=== PATIENT | female | born 1955 | race Caucasian/White ===

== ENCOUNTER → 2017-05-26 16:42 | Outpatient (CLI) | payer BC ==
[2016-05-20 07:28] VITALS: BMI 37.2
[~2017-05-26 16:42] MED LIST: ANASTROZOLE1 MG PO; AVAPRO75 MG PO; PERCOCET 10/3251 TA1 PO; PLAVIX75 MG; PROTONIX40 MG PO; SYNTHROID75 MCG PO
== END | disposition home or self-care (01) ==
LOC: D.US 16:30
DX: M79.605 Pain in left leg (principal); R60.0 Localized edema

== ENCOUNTER → 2017-06-28 17:33 | Outpatient (CLI) | payer BC ==
[2016-05-20 07:28] VITALS: BMI 37.2
== END | disposition home or self-care (01) ==
LOC: D.MAMMO 09:00
DX: Z85.3 Personal history of malignant neoplasm of breast (principal); Z12.31 Encounter for screening mammogram for malignant neoplasm of breast

== ENCOUNTER → 2017-12-15 09:33 | Outpatient (CLI) | payer BC ==
[2016-05-20 07:28] VITALS: BMI 37.2
[~2017-12-15 09:33] MED LIST changes: +ACETAMINOPHEN500 M1 PO; +HYDROCODON-ACE1 EAC7 PO; +HYDROCODONE-APA1 TAB PO
== END | disposition home or self-care (01) ==
LOC: D.CT 09:33
DX: S82.111A Displaced fracture of right tibial spine, initial encounter for closed fracture (principal); X58.XXXA Exposure to other specified factors, initial encounter; Y93.89 Activity, other specified; Y92.89 Other specified places as the place of occurrence of the external cause

== ENCOUNTER → 2017-12-16 12:43 | Outpatient (CLI) | payer BC ==
[2016-05-20 07:28] VITALS: BMI 37.2
== END | disposition home or self-care (01) ==
LOC: D.CT 12:43
DX: M25.512 Pain in left shoulder (principal); S42.92XA Fracture of left shoulder girdle, part unspecified, initial encounter for closed fracture; X58.XXXA Exposure to other specified factors, initial encounter; Y93.89 Activity, other specified; Y92.89 Other specified places as the place of occurrence of the external cause

== ENCOUNTER 2017-12-20 10:35 | Day surgery (SDC) | payer BC ==
[2017-12-17 12:35] LABS: CALC OSMOLALITY 280 mosm/kg (275-300); CALCIUM 9.1 mg/dL (8.5-10.1); CARBON DIOXIDE 25.3 mmol/L (21.0-32.0); CHLORIDE - SERUM 104 mmol/L (98-107); CREATININE - SERUM 0.8 mg/dL (0.6-1.3); GLUCOSE 96 mg/dL (74-106); POTASSIUM - SERUM 4.3 mmol/L (3.5-5.1); SODIUM 140 mmol/L (136-145); UREA NITROGEN 18 mg/dL (7-18); eGFR NON AFRICAN AMERICAN 77 mL/min (90-120)
[2017-12-17 12:47] LABS: HEMATOCRIT 36.2 % (36.0-48.0); HEMOGLOBIN 11.9 g/dL (12-16); MCH 31.4 pg (26.0-34.0); MCHC 32.9 g/dL (31.0-37.0); MCV 95.5 fL (80.0-100.0); MEAN PLATELET VOLUME 9.9 fL (7.4-10.4); RBC 3.79 10x6/uL (4.00-5.40); RDW 13.5 % (11.5-14.5); WBC 6.7 10x3/uL (4.8-10.8)
[2017-12-17 12:51] LABS: APPEARANCE HAZY (CLEAR); BILIRUBIN NEGATIVE (NEGATIVE); COLOR YELLOW (YELLOW); GLUCOSE NEGATIVE (NEGATIVE); KETONE NEGATIVE (NEGATIVE); NITRITE NEGATIVE (NEGATIVE); PROTEIN NEGATIVE (NEGATIVE); SPECIFIC GRAVITY 1.015 (1.005-1.020); UROBILINOGEN NORMAL (NORMAL)
[2017-12-17 12:52] LABS: BACTERIA FEW /hpf (NONE SEEN); EPITHELIAL CELLS 0-5 /hpf (0-5); MUCUS >1+ /lpf (NONE SEEN); RED CELLS - URINE RARE /hpf (0-5)
[~2017-12-20] VITALS: Ht 167.6 cm; Wt 106.8 kg
--- NOTE | ~2017-12-20 | OP ---
PATIENT NAME: LAY CAMERON MEDICAL RECORD: [id number] :57 [facility] AD[facility]ION DATE: SURGEON: GENOVEVA LEPE MD DATE OF OPERATION: 12/20/2017 PREOPERATIVE DIAGNOSIS: Medial tibial compression fracture -- tibial plateau fracture. POSTOPERATIVE DIAGNOSIS: Medial tibial compression fracture -- tibial plateau fracture. PROCEDURE: Open reduction internal fixation of her right medial tibial plateau. SURGEON: Genoveva Lepe MD ANESTHESIA: General. INTRAOPERATIVE COMPLICATIONS: None. SUMMARY OF PATHOLOGIC FINDINGS: As predicted on the scans, the patient had about a 3 mm depression in the central aspect of her tibial plateau. This required up tamping and backfill, which was all under fluoroscopic control. It was slightly over reduced for settling. IMPLANTS USED: AxSOS 3 system from [employer] proximal medial tibial plate with a combination of both locking and compression screw. OPERATIVE SUMMARY IN DETAIL: After obtaining the appropriate orthopedic surgery consent as well as anesthetic consultation, evaluation and clearance, the patient was brought to the operating room and placed on the operating table in supine position. After general laryngeal mask administered, tourniquet was placed on the proximal aspect of the right lower extremity. Right lower extremity was then prepped and draped in routine sterile fashion. The leg was elevated and exsanguinated, tourniquet inflated to 350 mmHg. Routine hockey stick style incision was made over the medial aspect of the leg, taken directly down to periosteum. Care was taken to develop the wound edge off the periosteum. Fracture was noted and a very small cortical perforation was created with a hand osteotome and then a bone tamp was used gently under fluoroscopy on AP and lateral planes to reapproximate the tibial plateau compression, in fact to make it just a slight bit higher. This was then backfilled with HydroSet from Juli[employer]. Once the HydroSet was allowed to harden, the [employer] AxSOS 3 tibial plateau plate was affixed in a combination of both compression and locking screws. Final radiographs were taken and submitted to radiology for final review. The wound was copiously irrigated and closed with #1 Vicryl followed by 2-0 Vicryl and skin kerry. Sterile dressings were applied. Tourniquet was deflated. The patient was awakened, taken to recovery room in stable condition. All final needle and sponge counts were correct. TRANSINT:[id number] Voice Confirmation ID: [id number] DOCUMENT ID: [id number] OPERATIVE REPORT [id number] LAY CAMERON MD, GENOVEVA MERLOS at 1341 CC: [id number] DICTATION DATE: 01/03/182245 HEEL FORMER: 01/04/18 0931 [facility] 12/20/17 [place] [id number]
[~2017-12-20 10:35] MED LIST changes: -HYDROCODONE-APA1 TAB PO
[2017-12-20 11:14] VITALS: Ht 167.6 cm; Wt 106.8 kg
[2017-12-20] MEDS ORDERED: HYDROCODONE-APA1 TAB PO (16:29)
== END 2017-12-20 19:10 | disposition home or self-care (01) ==
LOC: D.OPS 10:35 → D.PAN 12:30 → D.OPS 19:10
PROVIDERS: Anesthesiology
DX: S82.102A Unspecified fracture of upper end of left tibia, initial encounter for closed fracture (principal); M25.512 Pain in left shoulder; E03.9 Hypothyroidism, unspecified; K21.9 Gastro-esophageal reflux disease without esophagitis; Z01.812 Encounter for preprocedural laboratory examination

== ENCOUNTER → 2018-05-25 10:10 | Outpatient (CLI) | payer BC ==
[2017-12-20 11:14] VITALS: BMI 38.0
[~2018-05-25 10:10] MED LIST changes: +HYDROCODONE-APA1 TAB PO
[2018-05-25 11:52] LABS: ALBUMIN 3.6 g/dL (3.4-5.0); ANION GAP 11.5 mmol/L (8-16); BILIRUBIN - TOTAL 1.38 mg/dL (0.2-1.3); CARBON DIOXIDE 27.8 mmol/L (21.0-32.0); CREATININE - SERUM 0.9 mg/dL (0.6-1.3); POTASSIUM - SERUM 4.3 mmol/L (3.5-5.1); PROTEIN - SERUM 7.2 g/dL (6.4-8.2)
== END | disposition home or self-care (01) ==
LOC: D.LABREF 10:10
PROVIDERS: Family Medicine
DX: Z13.220 Encounter for screening for lipoid disorders (principal)

== ENCOUNTER → 2018-06-27 06:47 | Outpatient (CLI) | payer BC ==
[2017-12-20 11:14] VITALS: BMI 38.0
== END | disposition home or self-care (01) ==
LOC: D.MRI 06:47
DX: M54.5 Low back pain (principal)

== ENCOUNTER → 2018-06-28 16:22 | Outpatient (CLI) | payer BC ==
[2017-12-20 11:14] VITALS: BMI 38.0
== END | disposition home or self-care (01) ==
LOC: D.MAMMO 08:15
DX: Z12.31 Encounter for screening mammogram for malignant neoplasm of breast (principal)

== ENCOUNTER → 2019-01-20 13:13 | Outpatient (CLI) | payer BC ==
[2017-12-20 11:14] VITALS: BMI 38.0
== END | disposition home or self-care (01) ==
LOC: D.US 13:13
PROVIDERS: ATTEND Family Medicine
DX: N63.22 Unspecified lump in the left breast, upper inner quadrant (principal)

== ENCOUNTER 2019-07-04 08:00 | Outpatient (CLI) | payer BC ==
[2017-12-20 11:14] VITALS: BMI 38.0
== END 2019-07-04 23:59 | disposition home or self-care (01) ==
LOC: D.MAMMO 08:00
PROVIDERS: ATTEND Family Medicine
DX: Z85.3 Personal history of malignant neoplasm of breast (principal)

== ENCOUNTER 2019-08-11 13:13 | Inpatient (IN) | payer BC ==
[2019-08-11] VITALS (8 sets, daily range): BP systolic 123–155; BP diastolic 67–95; BMI 37.2
[~2019-08-11] VITALS: Ht 167.6 cm; Wt 114.2 kg
[2019-08-11 14:04] LABS: CALC OSMOLALITY 289 mosm/kg (275-300); CHLORIDE - SERUM 106 mmol/L (98-107); CREATININE - SERUM 1.2 mg/dL (0.6-1.3); GLUCOSE 168 mg/dL (74-106); POTASSIUM - SERUM 3.4 mmol/L (3.5-5.1); SODIUM 143 mmol/L (136-145); UREA NITROGEN 14 mg/dL (7-18); eGFR NON AFRICAN AMERICAN 48 mL/min (90-120)
[2019-08-11 14:14] LABS: ALBUMIN 3.9 g/dL (3.4-5.0); ALKALINE PHOSPHATASE 142 U/L (46-116); ALT (SGPT) 133 U/L (10-68); BILIRUBIN - TOTAL 3.17 mg/dL (0.2-1.3)
[2019-08-11 14:15] LABS: TROPONIN-I < 0.017 ng/mL (0.000-0.060)
[2019-08-11 14:37] LABS: WBC 20.6 10x3/uL (4.8-10.8)
[2019-08-11 14:38] LABS: HEMATOCRIT 41.6 % (36.0-48.0); HEMOGLOBIN 13.6 g/dL (12-16); MCH 30.6 pg (26.0-34.0); MCHC 32.7 g/dL (31.0-37.0); MCV 93.5 fL (80.0-100.0); MEAN PLATELET VOLUME 10.2 fL (7.4-10.4); PLATELET COUNT 244 10x3/uL (130-400); RBC 4.45 10x6/uL (4.00-5.40); RDW 13.3 % (11.5-14.5)
[2019-08-11 14:58] LABS: LIPASE 35219 U/L (73-393)
[2019-08-11 14:59] LABS: AMYLASE - SERUM 2456 U/L (25-115)
--- NOTE | 2019-08-11 15:00 | NUR ---
CRITICAL LABAMYLASE 3216RECEIVED FROM WAGONER; HERNESTO DARBY NOTIFIED.
[2019-08-11 15:21] LABS: APPEARANCE CLEAR (CLEAR); BILIRUBIN NEGATIVE (NEGATIVE); COLOR YELLOW (YELLOW); GLUCOSE NEGATIVE (NEGATIVE); KETONE NEGATIVE (NEGATIVE); NITRITE NEGATIVE (NEGATIVE); PROTEIN TRACE mg/dL (NEGATIVE); UROBILINOGEN NORMAL (NORMAL); WHITE CELLS - URINE 0-5 /hpf (NEGATIVE)
[2019-08-11 15:22] LABS: BACTERIA MANY /hpf (NEGATIVE); EPITHELIAL CELLS OCC /hpf (0-5); RED CELLS - URINE 0-5 /hpf (0-5)
[2019-08-11 15:30] LABS: LYMPHOCYTES 9 % (15-50); NEUTROPHILS 91 % (40-80); PLATELET ESTIMATE NORMAL
--- NOTE | 2019-08-11 16:00 | NUR ---
PATIENT SLIGHTLY DROWSEY; REPORTS PAIN IMPROVED TO 6 OR 7/10; FAMILY AT BEDSIDE; UPDATED ON PLAN OF CARE AND DELAYS IN CARE; WILL CONTINUE TO MONITOR.
--- NOTE | 2019-08-11 19:03 | NUR ---
PT REPORT RECEIVED FROM TRIXIE, USING [employer] PlatformUICATION. PT ABX AND FLUIDS RUNNING AT TIME OF REPORT. O2 GIVEN TO PT FOR LOW O2 SAT. EDP NOTIFIED OF PT CONDITION
--- NOTE | 2019-08-11 20:15 | NUR ---
RECEIVED PT TO ROOM 2312 VIA STRETCHER ACCOMPANIED BY ER STAFF. PT ABLE TO MOVE SELF OVER TO ICU BED, MONITORS ESTABLISHED WITH ALARMS ON, PT DENIES PAIN OR ANY NEEDS AT THIS TIME, ANUSHKA TYLER APN ON UNIT.
[2019-08-11] MEDS ORDERED: NEURONTIN 300300 MG PO (20:36)
[2019-08-11] MEDS ORDERED: ZANAFLEX4 MG PO (20:37)
[2019-08-11] MEDS ORDERED: LISINOPRIL10 MG PO (20:38)
[2019-08-11] MEDS ORDERED: LIPITOR20 MG PO (20:41)
--- NOTE | 2019-08-11 21:20 | NUR ---
PT FAMILY IN FOR VISITATION, ICU PHONE NUMBERS AND HOURS OF VISITATION PROVIDED, ALL QUESTIONS ANSWERED, ICE WATER PROVIDED PER REQUEST.
--- NOTE | 2019-08-11 23:47 | NUR ---
PT C/O NAUSEA, VOMITED 100CC OF YELLOW LIQUID, PRN ZOFRAN 4MG ADMINISTERED VIA SIVP PER MD ORDER.
[2019-08-12] VITALS (24 sets, daily range): BP systolic 107–147; BP diastolic 63–93; Ht 167.6 cm; Wt 114.2 kg
--- NOTE | 2019-08-12 00:35 | NUR ---
PT RESTING IN BED WITH EYES CLOSED, VSS, CONT POC.
--- NOTE | 2019-08-12 01:30 | NUR ---
ASSISTED PT TO BSC, ABLE TO PROVIDE OWN PERICARE, BACK TO BED WITHOUT DIFFICULTY, CALL LIGHT IN REACH.
[2019-08-12 04:04] LABS: BASOPHILS 0.1 % (0-2); EOSINOPHILS 0 % (0-7); HEMATOCRIT 41.4 % (36.0-48.0); HEMOGLOBIN 13.6 g/dL (12-16); IMMATURE GRANULOCYTES 0.3 % (0-5); LYMPHOCYTES 4.4 % (15-50); MCH 31.1 pg (26.0-34.0); MCHC 32.9 g/dL (31.0-37.0); MCV 94.7 fL (80.0-100.0); MEAN PLATELET VOLUME 9.7 fL (7.4-10.4); MONOCYTES 3.9 % (2-11); NEUTROPHILS 91.3 % (40-80); RBC 4.37 10x6/uL (4.00-5.40); RDW 13.5 % (11.5-14.5); WBC 16.1 10x3/uL (4.8-10.8)
[2019-08-12 04:08] LABS: APTT 24.7 SECONDS (22.8-39.4); INR 1.28 (0.85-1.17); PROTIME 15.4 SECONDS (11.6-15.0)
[2019-08-12 04:14] LABS: PLATELET COUNT 170 10x3/uL (130-400)
[2019-08-12 04:25] LABS: ALBUMIN 3.3 g/dL (3.4-5.0); BILIRUBIN - TOTAL 2.6 mg/dL (0.2-1.3); CALCIUM 8.9 mg/dL (8.5-10.1); CARBON DIOXIDE 27.8 mmol/L (21.0-32.0); CHOL - HDL RATIO 2.3 ratio (2.3-4.1); CREATININE - SERUM 1.3 mg/dL (0.6-1.3); LDL-HDL RATIO 1.2 ratio (1.5-3.5); MAGNESIUM - SERUM 1.9 mg/dL (1.8-2.4); PHOSPHOROUS 3.7 mg/dL (2.5-4.9); PROTEIN - SERUM 7.1 g/dL (6.4-8.2); THYROID STIMULATING HORMONE 0.45 uIU/mL (0.36-3.74)
[2019-08-12 04:33] LABS: ANION GAP 11.9 mmol/L (8-16); POTASSIUM - SERUM 4.7 mmol/L (3.5-5.1)
--- NOTE | 2019-08-12 08:30 | NUR ---
UP IN BED VISITIN WITH VISITOR AT THIS TIME. VSS. NO ACUTE DISTRESS NOTED. PT STATES PAIN IS MUCH BETTER THAN IS WAS LAST SHIFT. WILL CONTINUE PLAN OF CARE.
--- NOTE | 2019-08-12 10:10 | NUR ---
NOTED ORDER FOR SPUTUM SPECIMEN COLLECTION. PT STATES SHE IS NOT CURRETNTLY HAVING PRODUCTIVE SPUTUM. SPECIMEN CUP LEFT AT BEDSIDE FOR COLLECTION IF SHE DOES HAVE PRODUCTIVE SPUTUM. VSS. NO ACUTE DISTRESS NOTED. WILL CONTINUE PLAN OF CARE.
--- NOTE | 2019-08-12 10:50 | NUR ---
DR MARTIN AND DR LEI IN ROOM SPEAKING WITH PT AND PTS DAUGHTER. UPDATES PROVIDED. ALL QUESTIOSN AND CONCERNS ADRESSED.
--- NOTE | 2019-08-12 11:00 | NUR ---
DR MCKEON CONSULTED, NEHAL DR MCKEON'S DOCTORATE OF CHIROPRACTIC ASSEMBLER CONVERTIBLE TOP, NOTIFIED OF THIS CONSULT.
--- NOTE | 2019-08-12 11:53 | NUR ---
LEFT WITH MRI AT THIS TIME VIA WHEELCHAIR ACCOMPANIED BY HOSPITAL STAFF AND NURSE. NO ACUTE DISTRESS NOTED. VSS. WILL CONTINUE PLAN OF CARE.
--- NOTE | 2019-08-12 12:40 | NUR ---
RETURNED FROM MRI AT THIS TIME. FAMILY IN ROOM. VSS. WILL CONTINUE PLAN OF CARE.
--- NOTE | 2019-08-12 13:32 | NUR ---
IV TO LT AC SITE BEGINNING TO LEAK AROUND INSERTION SITE. ATTMPT X 2 PERFORMED BY THIS NURSE TO LT AND FOREARM WITH NO SUCCESS. WILL HAVE SECOND NURSE ATTEMPT IV RECITATION. VSS. WILL CONTINUE PLAN OF CARE.
--- NOTE | 2019-08-12 14:15 | NUR ---
IV RECITED TO RT AC 20G, FLUSHES WELL. OLD LEAKING IV DC TO LT AC, CATHETER TIP INTACT. NO ACUTE DISTRESS NOTED. VSS. WILL CONTINUE PLAN OF CARE.
--- NOTE | 2019-08-12 15:10 | NUR ---
PER DR LEI START LOVENOX 40 SUBQ DAILY.
--- NOTE | 2019-08-12 17:16 | NUR ---
UP IN BED VISITING WITH FAMILY AT THIS TIME. NO ACUTE DISTRESS NOTED. VSS. WILL CONTINUE PLAN OF CARE.
--- NOTE | 2019-08-12 18:17 | NUR ---
CHG BATH PROVIDED AT THIS TIME. TOTAL LINEN CHANGE PROVIDED. VSS. NO ACUTE DISTRESS NOTED. WILL CONTINUE PLAN OF CARE.
--- NOTE | 2019-08-12 19:30 | NUR ---
RESUMED CARE OF PT, ASSESSMENT PER FLOWSHEET. HR SR ON CM, PPP, ABD MILDLY TENDER TO PALP IN EPIGASTRIC REGION, DENIES ANY NEEDS AT THIS TIME. BED LOW, CALL LIGHT IN REACH.
--- NOTE | 2019-08-12 21:20 | NUR ---
PT FAMILY IN FOR VISITATION, ALL DENY ANY NEEDS AT THIS TIME, VSS.
--- NOTE | 2019-08-12 23:30 | NUR ---
REASSESSMENT PER FLOWSHEET, NO ACUTE CHANGES NOTED AT THIS TIME. PT DENIES PAIN OR ANY NEEDS, CONT POC.
[2019-08-13] VITALS (14 sets, daily range): BP systolic 110–137; BP diastolic 70–90
--- NOTE | 2019-08-13 01:49 | NUR ---
PT RESTING IN BED WITH EYES CLOSED, VSS, CONT TO MONITOR.
[2019-08-13 03:41] LABS: BASOPHILS 0.1 % (0-2); EOSINOPHILS 0 % (0-7); HEMATOCRIT 38.8 % (36.0-48.0); HEMOGLOBIN 12.6 g/dL (12-16); IMMATURE GRANULOCYTES 0.4 % (0-5); LYMPHOCYTES 5.3 % (15-50); MCHC 32.5 g/dL (31.0-37.0); MCV 95.6 fL (80.0-100.0); MEAN PLATELET VOLUME 9.8 fL (7.4-10.4); MONOCYTES 4.4 % (2-11); NEUTROPHILS 89.8 % (40-80); PLATELET COUNT 146 10x3/uL (130-400); RBC 4.06 10x6/uL (4.00-5.40); RDW 13.8 % (11.5-14.5); WBC 19.9 10x3/uL (4.8-10.8)
[2019-08-13 04:14] LABS: ANION GAP 10.6 mmol/L (8-16); CALCIUM 8.7 mg/dL (8.5-10.1); CARBON DIOXIDE 26.4 mmol/L (21.0-32.0); MAGNESIUM - SERUM 1.9 mg/dL (1.8-2.4); PHOSPHOROUS 2.9 mg/dL (2.5-4.9); VANCOMYCIN - TROUGH 10.6 ug/mL (10.0-20.0)
--- NOTE | 2019-08-13 05:50 | NUR ---
AM LABS REVIEWED, NOTHING TO TREAT PER ELECTROLYTE PROTOCOL, NO VISITORS PRESENT AT THIS TIME, PT RESTING WITH EYES CLOSED, VSS.
--- NOTE | 2019-08-13 07:22 | NUR ---
ASSITED TO CHAIR AT THIS TIME FROM BED VIA STAND BY ASSIST. VSS. CONTINENT VOID NOTED TO BEDSIDE TOILET. NO ACUTE DISTRESS NOTED. WILL CONTINUE PLAN OF CARE.
[2019-08-13 08:54] LABS: BILIRUBIN - DIRECT 0.33 mg/dL (0.00-0.30); BILIRUBIN - INDIRECT 2.73 mg/dL (0.00-1.00); BILIRUBIN - TOTAL 3.06 mg/dL (0.2-1.3)
--- NOTE | 2019-08-13 09:21 | NUR ---
ASSISTED BACK TO BED AT THIS TIME. CONTINENT VOID NOTED. VSS. WILL CONTINUE PLAN OF CARE.
--- NOTE | 2019-08-13 11:11 | MORECARE ---
CASE MANAGEMENT DISCHARGE SUMMARY PATIENT: LAY CAMERON MOLLY UNIT: [id number] ADM DATE: 08/11/19 AGE: 64 : 57 SEX: F ROOM/BED: D.2312 AUTHOR: JAMIE LUGO PHYSICIAN: REFERRING PHYSICIAN: CHRISTINA LEI MD DATE OF SERVICE: 08/13/19 Discharge Plan Patient Name: LAY CAMERON Facility: [facility]:[place] : 1955 Planned Disposition: Home Anticipated Discharge Date: Discharge Date: Expected LOS: Initial Reviewer: [email or web address] Initial Review Date: 08/13/2019 Generated: 08/13/19 12:11 pm Comments DCP- Discharge Planning Updated by [email or web address]: Teetee Ceballos on 08/13/19 10:[address] Patient Name: LAY CAMERON Admission Status: ER Accout number: [id number] Admission Date: 08-11-2019 : 1955 Admission Diagnosis: Attending: CHRISTINA LEI Current LOS: 2 Anticipated DC Date: Planned Disposition: Home Primary Insurance: [employer] [place] [employer] [facility] Discharge Planning Comments: CM met with patient at bedside after explaining CM role and obtaining verbal consent. CM discussed availability / needs of home health, REHAB and medical equipment. PATIENT DENIES ANY DISCHARGE NEEDS AT THIS TIME. PLANS TO DISCHARGE TO HOME WITH HER . CM WILL FOLLOW. Systems Security Consultant: Teetee Ceballos DCPIA - Discharge Planning Initial Assessment Updated by [id number]: Teetee Ceballos on 08/13/19 11:07 am * Is the patient Alert and Oriented? Yes * PCP LEI * Pharmacy [facility] * Preadmission Environment Home with Family * ADLs Independent * Equipment None * List name and contact numbers for known caregivers / representatives who currently or will assist patient after discharge: CHERIE, SPOUSE, * Community resources currently utilized None * Additional services required to return to the preadmission environment? No * Can the patient safely return to the preadmission environment? Yes * Has this patient been hospitalized within the prior 30 days at any hospital? No Patient Name: LAY CAMERON Page [phone] at 1111 All edits/amendments must be made on the electronic document DICTATION DATE: 08/13/19 1111 RADIO PROGRAM DIRECTOR: RAMIREZ 08/13/19 1111 RPT#: [id number] [place] DATE: STATUS: ADM IN [facility] [address] [place] [address] END OF REPORT
--- NOTE | 2019-08-13 11:20 | NUR ---
UP IN BED AWAKE AT THIS TIME. NO ACUTE DISTRESS NOTED. VSS. CALL LIGHT IN REACH. WILL CONTINUE PLAN OF CARE.
--- NOTE | 2019-08-13 12:26 | NUR ---
NOTED SHORTNESS OF BREATH, RESPIRATIONS UP TO 30S, AND FACIAL FLUSHING. DR TUCKER NOTIFIED. ORDERS RECIEVED.
--- NOTE | 2019-08-13 13:55 | NUR ---
RECIEVED ORDER TO TRANSFER PT PER DR MARTIN AND DR TUCKER.
--- NOTE | 2019-08-13 14:51 | NUR ---
DDIMER GREATER THAN 20, DR NAIDA LAWRENCE.
--- NOTE | 2019-08-13 15:33 | NUR ---
PER DR TUCKER, OBTAIN CTA CHEST FOR ELEVATED DDIMER AND THEN TRANSFER TO FLOOR. PT LEFT FOR CT AT THIS TIME AND THEN WILL BE TRANSFERRED TO 2231. FAMILY NOTIFIED. VSS. NO FURTHER ACTIONS.
--- NOTE | 2019-08-13 16:16 | NUR ---
PT RECEIVED TO ROOM ALERT AND ORIENTED AND UP ADLIB TO BATHROOM WITH SBA. LUNGS CTA WITH NO PRODUCTIVE COUGH.NO PERIPHERAL EDEMA NOTED.O2 2L N/C WITH SOB WITH MINIMAL EXERTION. ENCOURAGED TO USE CALL LIGHT FOR ASSSIT. IV TO LEFT F/A WITH IVF INFUSING AT PRESCRIBED RATE
[2019-08-14] VITALS (16 sets, daily range): BP systolic 119–163; BP diastolic 64–94
[2019-08-14 06:38] LABS: BASOPHILS 0.1 % (0-2); EOSINOPHILS 0.1 % (0-7); HEMATOCRIT 34.9 % (36.0-48.0); HEMOGLOBIN 11.3 g/dL (12-16); IMMATURE GRANULOCYTES 0.3 % (0-5); LYMPHOCYTES 5.7 % (15-50); MCH 30.5 pg (26.0-34.0); MCHC 32.4 g/dL (31.0-37.0); MCV 94.1 fL (80.0-100.0); MEAN PLATELET VOLUME 10.6 fL (7.4-10.4); MONOCYTES 5.2 % (2-11); NEUTROPHILS 88.6 % (40-80); PLATELET COUNT 160 10x3/uL (130-400); RBC 3.71 10x6/uL (4.00-5.40); RDW 13.6 % (11.5-14.5); WBC 16.3 10x3/uL (4.8-10.8)
[2019-08-14 07:10] LABS: ALBUMIN 2.6 g/dL (3.4-5.0); ALKALINE PHOSPHATASE 76 U/L (46-116); ALT (SGPT) 234 U/L (10-68); BILIRUBIN - TOTAL 2.73 mg/dL (0.2-1.3); CALC OSMOLALITY 274 mosm/kg (275-300); CALCIUM 8.9 mg/dL (8.5-10.1); CARBON DIOXIDE 24.7 mmol/L (21.0-32.0); CHLORIDE - SERUM 106 mmol/L (98-107); GLUCOSE 86 mg/dL (74-106); MAGNESIUM - SERUM 2.1 mg/dL (1.8-2.4); POTASSIUM - SERUM 3.7 mmol/L (3.5-5.1); PROTEIN - SERUM 6.4 g/dL (6.4-8.2); SODIUM 138 mmol/L (136-145); UREA NITROGEN 13 mg/dL (7-18); eGFR NON AFRICAN AMERICAN 90 mL/min (90-120)
[2019-08-14 07:14] LABS: CREATININE - SERUM 0.7 mg/dL (0.6-1.3); PHOSPHOROUS 1.6 mg/dL (2.5-4.9)
--- NOTE | 2019-08-14 07:44 | NUR ---
AWAKE AND ALERT. ORIENTED X3. NO C/O AT THIS TIME. LUNGS ARE DIMINISHED WITH FAINT CRACKLES NOTED. SKIN IS INTACT WITHOUT REDNESS. IV TO LEFT FOREARM IS PATENT WTIHOUT REDNESS AT INSERTION SITE. DENIES NEEDS. NPO AT THIS TIME.
--- NOTE | 2019-08-14 12:03 | NUR ---
1203-CARE TRANSFERRED TO YAMILKA JAQUEZ RN
--- NOTE | 2019-08-14 12:08 | NUR ---
CARE ASSUMED FROM ANGEL BELTRÁN RN
--- NOTE | 2019-08-14 12:39 | NUR ---
RETURNED FROM SURGERY. A/O X3, FERNANDO TO RIGHT LOWER ABDOMEN INTACT WITH BLOODY DRAINAGE. IN ROOM.
--- NOTE | 2019-08-14 15:00 | NUR ---
RESTING QUIETLY IN BED. FAMILY AT BEDSIDE.
--- NOTE | 2019-08-14 18:00 | NUR ---
AMBULATED IN ROOM WITH NURSING. VOIDED 250 CC CLEAR YELLOW URINE. DENIES NEEDS. NO CHANGES NOTED.
[2019-08-15 01:39] VITALS: BP 120/61
[2019-08-15 04:44] LABS: BASOPHILS 0.1 % (0-2); EOSINOPHILS 0.4 % (0-7); HEMATOCRIT 32.9 % (36.0-48.0); HEMOGLOBIN 10.9 g/dL (12-16); IMMATURE GRANULOCYTES 0.6 % (0-5); LYMPHOCYTES 6.6 % (15-50); MCH 30.5 pg (26.0-34.0); MCHC 33.1 g/dL (31.0-37.0); MCV 92.2 fL (80.0-100.0); MEAN PLATELET VOLUME 9.4 fL (7.4-10.4); NEUTROPHILS 85.3 % (40-80); PLATELET COUNT 150 10x3/uL (130-400); RBC 3.57 10x6/uL (4.00-5.40); RDW 13.4 % (11.5-14.5)
[2019-08-15 04:49] VITALS: BP 122/66
[2019-08-15 04:56] LABS: APTT 24.3 SECONDS (22.8-39.4); INR 1.32 (0.85-1.17); PROTIME 15.8 SECONDS (11.6-15.0)
[2019-08-15 05:11] LABS: ALBUMIN 2.2 g/dL (3.4-5.0); ALKALINE PHOSPHATASE 65 U/L (46-116); ALT (SGPT) 206 U/L (10-68); BILIRUBIN - TOTAL 1.95 mg/dL (0.2-1.3); CALC OSMOLALITY 275 mosm/kg (275-300); CALCIUM 8.6 mg/dL (8.5-10.1); CARBON DIOXIDE 25.4 mmol/L (21.0-32.0); CHLORIDE - SERUM 106 mmol/L (98-107); CREATININE - SERUM 0.7 mg/dL (0.6-1.3); GLUCOSE 93 mg/dL (74-106); PHOSPHOROUS 1.6 mg/dL (2.5-4.9); POTASSIUM - SERUM 3.5 mmol/L (3.5-5.1); PROTEIN - SERUM 5.7 g/dL (6.4-8.2); SODIUM 138 mmol/L (136-145); UREA NITROGEN 13 mg/dL (7-18); VANCOMYCIN - TROUGH 11.9 ug/mL (10.0-20.0); eGFR NON AFRICAN AMERICAN 90 mL/min (90-120)
--- NOTE | 2019-08-15 07:52 | NUR ---
AWAKE AND ALERT. ORIENTED X3. NO C/O THIS AM. LUNGS ARE CLEAR BILATERALLY, NO COUGH NOTED. SKIN IS INTACT WITHOUT REDNESS EXCEPT 4 SMALL INSERTION SITES TO ABDOMEN WHICH ARE CLEAN AND DRY. IV TO LEFT HAND IS PATENT WITHOUT REDNESS AT INSERTION SITE. DENIES NEEDS. SCD'S IN PLACE.
[2019-08-15 08:53] VITALS: BP 124/57
--- NOTE | 2019-08-15 09:01 | NUR ---
OFF UNIT VIA BED FOR PROCEDURE.
--- NOTE | 2019-08-15 10:00 | NUR ---
RETURNED FROM PROCEDURE. A/O X3. DENIES NEEDS. VSS. AT BEDSIDE.
[2019-08-15 10:10] LABS: CEA 1.7 ng/mL (0.0-4.7)
[2019-08-15 11:30] VITALS: BP 129/67
[2019-08-15] MEDS ORDERED: HYDROCODON-ACE1 EAC7 PO (13:10)
[2019-08-15] MEDS ORDERED: LEVOFLOXACIN500 MG PO (13:11)
--- NOTE | 2019-08-15 14:58 | NUR ---
NUTRITION F/U CHART REVIEWED, PT VISIT. PT REPORTS TOLERATING FULL LIQUID DIET. NO COMPLAINTS. WILL CONTINUE TO MONITOR DIET ADVANCEMENT, PO INTAKE. RD FOLLOWING
--- NOTE | 2019-08-15 16:16 | NUR ---
FERNANDO D/C WITHOUT DIFFICULTY. TOLERATED WITHOUT C/O PAIN OR DISCOMFORT.
[2019-08-15 17:30] VITALS: BP 126/60
--- NOTE | 2019-08-15 18:35 | NUR ---
NOT EATING SUPPER. CHANGED OUT ICE CREAM AND JELLO TO HER TASTE. DENIES NEEDS. NO CHANGES NOTED. OLD FERNANDO SITE IS NO LONGER LEAKING.
--- NOTE | 2019-08-15 19:20 | NUR ---
PT SITTING UP IN BED WITHOUT DISTRESS, AOX4. DENIES PAIN. BOWEL SOUNDS ACTIVE X4. STATES SHE HAS HAD AN OCCASIONAL COUGH, COUGHING UP CLEAR TO YELLOW SPUTUM. REMINDED OF PRN COUGH MED, VERBALIZED UNDERSTANDING. DRESSINGS TO ABD CDI. EATING ORANGE SHERBERT. DENIES NEEDS. CL IN REACH, WILL CTM
[2019-08-15 20:14] VITALS: BP 126/62
--- NOTE | 2019-08-15 21:00 | NUR ---
GAVE MOM ORDERED, PT DENIES NEEDS. STATES SHE IS PASSING GAS AND HAD HER FIRST SMALL BM SINCE WEDNESDAY ONE HOUR AGO. STATES IT WAS LOOSE. CL IN REACH, WILL CTM
[2019-08-16 01:02] VITALS: BP 124/98
--- NOTE | 2019-08-16 03:56 | NUR ---
PT WOKE UP COUGHING, REQUESTED AND GIVEN COUGH MED. PROVIDED ICE WATER. DENIES OTHER NEEDS. FAMILY AT BEDSIDE. WILL CTM
[2019-08-16 07:11] LABS: BASOPHILS 0.2 % (0-2); EOSINOPHILS 1.2 % (0-7); HEMATOCRIT 35.1 % (36.0-48.0); HEMOGLOBIN 11.3 g/dL (12-16); IMMATURE GRANULOCYTES 1.1 % (0-5); MCH 30.4 pg (26.0-34.0); MCHC 32.2 g/dL (31.0-37.0); MEAN PLATELET VOLUME 10.3 fL (7.4-10.4); MONOCYTES 7.6 % (2-11); NEUTROPHILS 81.9 % (40-80); RBC 3.72 10x6/uL (4.00-5.40); RDW 13.4 % (11.5-14.5); WBC 12.6 10x3/uL (4.8-10.8)
[2019-08-16 07:12] LABS: MCV 94.4 fL (80.0-100.0); PLATELET COUNT 87 10x3/uL (130-400)
[2019-08-16 07:21] LABS: ALBUMIN 2.3 g/dL (3.4-5.0); ALKALINE PHOSPHATASE 77 U/L (46-116); BILIRUBIN - TOTAL 1.55 mg/dL (0.2-1.3); CALC OSMOLALITY 271 mosm/kg (275-300); CALCIUM 8.2 mg/dL (8.5-10.1); CARBON DIOXIDE 25.2 mmol/L (21.0-32.0); CHLORIDE - SERUM 104 mmol/L (98-107); CREATININE - SERUM 0.6 mg/dL (0.6-1.3); GLUCOSE 88 mg/dL (74-106); MAGNESIUM - SERUM 2.1 mg/dL (1.8-2.4); PHOSPHOROUS 1.7 mg/dL (2.5-4.9); POTASSIUM - SERUM 3.3 mmol/L (3.5-5.1); PROTEIN - SERUM 5.8 g/dL (6.4-8.2); SODIUM 137 mmol/L (136-145); UREA NITROGEN 10 mg/dL (7-18); eGFR NON AFRICAN AMERICAN > 90 mL/min (90-120)
[2019-08-16 07:22] LABS: ALT (SGPT) 149 U/L (10-68)
--- NOTE | 2019-08-16 07:45 | NUR ---
REPORT RECIEVED. PT SITTING SEMI FOWLERS IN BED. BANDAID TO LUQ SOAKED TROUGH GOWN AND ONTO SHEETS. APPLIED 4X4 AND TAPE. LINEN CHANGE AT THIS TIME. RR EVEN AND UNLABORED. NO DISTRESS NOTED. PT HAS A L HAND PIV INFUSING NS @ 75. BED LOCKED AND IN LOWEST POSITION, CALL LIGHT WITHIN REACH. WILL CTM
[2019-08-16 08:06] LABS: PLATELET ESTIMATE DECREASED
[2019-08-16 09:22] VITALS: BP 137/81
--- NOTE | 2019-08-16 10:08 | MORECARE ---
CASE MANAGEMENT DISCHARGE SUMMARY PATIENT: LAY CAMERON MOLLY UNIT: [id number] ADM DATE: 08/11/19 AGE: 64 : 57 SEX: F ROOM/BED: D.2232 AUTHOR: PARISH,DOC PHYSICIAN: REFERRING PHYSICIAN: CHRISTINA LEI MD DATE OF SERVICE: 08/16/19 Discharge Plan Patient Name: LAY CAMERON Facility: [facility]:[place] : 1955 Planned Disposition: Home Anticipated Discharge Date: Discharge Date: Expected LOS: Initial Reviewer: [email or web address] Initial Review Date: 08/13/2019 Generated: 08/16/19 11:08 am Comments DCP- Discharge Planning Updated by [id number]: Bina Sawant on 08/16/19 9:[address] Patient Name: LAY CAMERON Encounter No: [id number] : 1955 Primary Insurance: [employer] [place] [employer] [facility] Anticipated DC Date: Planned Disposition: Home External Planned Provider: : DCP follow-up note: Patient and family in agreement with discharge plan. No changes to plan. Case management will follow and assist as needed. Bina Jese DCP- Discharge Planning Updated by [email or web address]: Teetee Ceballos on 08/13/19 10:[address] Patient Name: LAY CAMERON Admission Status: ER Accout number: [id number] Admission Date: 08-11-2019 : 1955 Admission Diagnosis: Attending: CHRISTINA LEI Current LOS: 2 Anticipated DC Date: Planned Disposition: Home Primary Insurance[facility] [employer] [facility] Discharge Planning Comments: CM met with patient at bedside after explaining CM role and obtaining verbal consent. CM discussed availability / needs of home health, REHAB and medical equipment. PATIENT DENIES ANY DISCHARGE NEEDS AT THIS TIME. PLANS TO DISCHARGE TO HOME WITH HER . CM WILL FOLLOW. Eyewear Manufacturing Tech: Teetee Ceballos DCPIA - Discharge Planning Initial Assessment Updated by [email or web address]: Teetee Ceballos on 08/13/19 11:07 am * Is the patient Alert and Oriented? Yes * PCP LEI * [facility] * Preadmission Environment Home with Family * ADLs Independent * Equipment None * List name and contact numbers for known caregivers / representatives who currently or will assist patient after discharge: CHERIE, SPOUSE, * Community resources currently utilized None * Additional services required to return to the preadmission environment? No * Can the patient safely return to the preadmission environment? Yes * Has this patient been hospitalized within the prior 30 days at any hospital? No Last DP export: 08/13/19 10:11 Patient Name: LAY CAMERON Page [phone] at 1008 All edits/amendments must be made on the electronic document DICTATION DATE: 08/16/19 100 HINGING MACHINE OPERATOR: RAMIREZ 08/16/19 100 RPT#: [id number] DC DATE: STATUS: ADM IN [facility] [address] [place] [address] END OF REPORT
--- NOTE | 2019-08-16 11:03 | NUR ---
DC PAPERWORK GONE OVER AND SIGNED WITH PT. ALL QUESTIONS ANSWERED. PIV REMOVED, CATH TIP FULLY INTACT. TELEMETRY REMOVED AND RETURNED TO ASSISTANT PROFESSOR OF CHEMISTRY. REDRESSED LIVER BIOPSY INCISION. VALUBLES PACKED UP AND WAITING ON PTS TO ARRIVE TO TAKE PT HOME.
[2019-08-18 10:09] LABS: CA 15-3 16.7 U/mL (0.0-25.0)
--- NOTE | 2019-08-18 10:33 | MORECARE ---
CASE MANAGEMENT DISCHARGE SUMMARY PATIENT: LAY CAMERON MOLLY UNIT: [id number] ADM DATE: 08/11/19 AGE: 64 : 57 SEX: F ROOM/BED: D.2232 AUTHOR: PARISH,DOC PHYSICIAN: REFERRING PHYSICIAN: CHRISTINA LEI MD DATE OF SERVICE: 08/18/19 Discharge Plan Patient Name: LAY CAMERON Facility: [facility]:[place] : 1955 Planned Disposition: Home Anticipated Discharge Date: Discharge Date: 08/16/2019 Expected LOS: 0 Initial Reviewer: [email or web address] Initial Review Date: 08/13/2019 Generated: 08/18/19 11:32 am Comments DCP- Discharge Planning Updated by [email or web address]: Bina Sawant on 08/16/19 9:[address] Patient Name: LAY CAMERON Encounter No: [id number] : 1955 Primary Insurance: [employer] [facility] Anticipated DC Date: Planned Disposition: Home External Planned Provider: : DCP follow-up note: Patient and family in agreement with discharge plan. No changes to plan. Case management will follow and assist as needed. Bina Sawant DCP- Discharge Planning Updated by [id number]: Teetee Ceballos on 08/13/19 10:[address] Patient Name: LAY CAMERON Admission Status: ER Accout number: [id number] Admission Date: 08-11-2019 : 1955 Admission Diagnosis: Attending: CHRISTINA LEI Current LOS: 2 Anticipated DC Date: Planned Disposition: Home Primary Insurance: [employer] [facility] Discharge Planning Comments: CM met with patient at bedside after explaining CM role and obtaining verbal consent. CM discussed availability / needs of home health, REHAB and medical equipment. PATIENT DENIES ANY DISCHARGE NEEDS AT THIS TIME. PLANS TO DISCHARGE TO HOME WITH HER . CM WILL FOLLOW. Deputy Head: Teetee Ceballos DCPIA - Discharge Planning Initial Assessment Updated by [email or web address]: Teetee Ceballos on 08/13/19 11:07 am * Is the patient Alert and Oriented? Yes * PCP LEI * [facility] * Preadmission Environment Home with Family * ADLs Independent * Equipment None * List name and contact numbers for known caregivers / representatives who currently or will assist patient after discharge: CHERIE, SPOUSE, * Community resources currently utilized None * Additional services required to return to the preadmission environment? No * Can the patient safely return to the preadmission environment? Yes * Has this patient been hospitalized within the prior 30 days at any hospital? No Last DP export: 08/16/19 9:08 Patient Name: LAY CAMERON Page [phone] at 1033 All edits/amendments must be made on the electronic document DICTATION DATE: 08/18/19 1032 NON DESTRUCTIVE EVALUATION SPECIALIST: RAMIREZ 08/18/19 1032 RPT#: [id number] DC DATE:08/16/19 STATUS: DIS IN [facility] [address] [place] [address] END OF REPORT
== END 2019-08-16 12:25 | disposition home or self-care (01) | DRG 853 ==
LOC: D.ER 13:13 → D.MS 19:30 → D.ICU 19:30 → D.MS 08-13 15:39
PROVIDERS: Family Medicine; Family Medicine Adult Medicine; Radiology Diagnostic Radiology; Surgery; ADMIT Family Medicine; ATTEND Family Medicine
PROC: 0W9G4ZX Drainage of Peritoneal Cavity, Percutaneous Endoscopic Approach, Diagnostic (ICD-10-PCS; 2019-08-14)
PROC: 0FT44ZZ Resection of Gallbladder, Percutaneous Endoscopic Approach (ICD-10-PCS; principal; 2019-08-14 15:30)
PROC: 0FB13ZX Excision of Right Lobe Liver, Percutaneous Approach, Diagnostic (ICD-10-PCS; 2019-08-15)
DX: A41.9 Sepsis, unspecified organism (principal); K85.90 Acute pancreatitis without necrosis or infection, unspecified; N17.0 Acute kidney failure with tubular necrosis; N39.0 Urinary tract infection, site not specified; K80.10 Calculus of gallbladder with chronic cholecystitis without obstruction; K76.9 Liver disease, unspecified; R74.0 Nonspecific elevation of levels of transaminase and lactic acid dehydrogenase [LDH]; D72.829 Elevated white blood cell count, unspecified; E80.6 Other disorders of bilirubin metabolism; E87.6 Hypokalemia; I10 Essential (primary) hypertension; E78.5 Hyperlipidemia, unspecified; G62.9 Polyneuropathy, unspecified; E03.9 Hypothyroidism, unspecified; K21.9 Gastro-esophageal reflux disease without esophagitis; Z85.3 Personal history of malignant neoplasm of breast

== ENCOUNTER → 2019-09-22 07:31 | Outpatient (CLI) | payer BC ==
[2019-08-12 12:02] VITALS: BMI 40.2
[~2019-09-22 07:31] MED LIST changes: +LEVOFLOXACIN500 MG PO; +LIPITOR20 MG PO; +LISINOPRIL10 MG PO; +NEURONTIN 300300 MG PO; +ZANAFLEX4 MG PO
== END | disposition home or self-care (01) ==
LOC: D.CT
PROVIDERS: ATTEND Surgery
DX: K81.0 Acute cholecystitis (principal)

== ENCOUNTER → 2020-01-19 08:56 | Outpatient (CLI) | payer BC ==
[2019-08-12 12:02] VITALS: BMI 40.2
== END | disposition home or self-care (01) ==
LOC: D.CT 08:56
PROVIDERS: ATTEND Family Medicine
DX: K76.9 Liver disease, unspecified (principal)

== ENCOUNTER 2020-03-27 07:29 | Day surgery (SDC) | payer BC ==
[~2020-03-27] VITALS: Ht 170.2 cm; Wt 93.6 kg
[2020-03-27 07:55] LABS: HEMATOCRIT 37.7 % (36.0-48.0); HEMOGLOBIN 11.9 g/dL (12-16); MCH 29.1 pg (26.0-34.0); MCHC 31.6 g/dL (31.0-37.0); MCV 92.2 fL (80.0-100.0); MEAN PLATELET VOLUME 9.1 fL (7.4-10.4); RBC 4.09 10x6/uL (4.00-5.40); RDW 16.6 % (11.5-14.5); WBC 4.7 10x3/uL (4.8-10.8)
[2020-03-27 08:44] VITALS: BP 119/66; Ht 170.2 cm; Wt 93.6 kg
[2020-03-27] MEDS ORDERED: PROTONIX40 MG PO (08:55)
[2020-03-27] MEDS ORDERED: HYDROCHLOROTH12.5 M1 PO (08:55)
--- NOTE | 2020-03-27 11:37 | NUR ---
1135 IV REMOVED AND PRESSURE HELD INSTRUCTIONS GIVEN
== END 2020-03-27 11:45 | disposition home or self-care (01) ==
LOC: D.OPS 07:29
PROVIDERS: Anesthesiology; ATTEND Surgery
DX: Z12.11 Encounter for screening for malignant neoplasm of colon (principal); K81.0 Acute cholecystitis

== ENCOUNTER 2020-07-05 14:00 | Outpatient (CLI) | payer BC ==
[2020-03-27 08:44] VITALS: BMI 32.3
[~2020-07-05 14:00] MED LIST changes: +HYDROCHLOROTH12.5 M1 PO
== END 2020-07-05 23:59 | disposition home or self-care (01) ==
LOC: D.MAMMO 14:00
PROVIDERS: ATTEND Family Medicine
DX: Z85.3 Personal history of malignant neoplasm of breast (principal)

== ENCOUNTER → 2021-03-13 09:32 | Outpatient (CLI) | payer BC ==
[2020-03-27 08:44] VITALS: BMI 32.3
== END | disposition home or self-care (01) ==
LOC: D.MRI 09:32
PROVIDERS: ATTEND Family Medicine
DX: R17 Unspecified jaundice (principal)